=== PATIENT | female | born 1985 | race Caucasian/White ===

== ENCOUNTER 2021-03-30 17:04 | Observation (INO) | payer BC, SELFPAY ==
[2021-03-30 17:35] VITALS: BMI 45.3
[2021-03-30 18:56] VITALS: BP 111/77; PULSE 87; RESP 16; TEMP 36.9; O2SAT 97
--- NOTE | 2021-03-30 20:05 | PC.NURSE ---
ADMIT: Pt arrived by EMS at 1850. Ambulatory from stretcher to bed. VSS on 2LNC, afebrile. Mild SOB. Denies chills, nausea/vomiting, and pain at this time. Extension tubing added to nasal cannula to allow pt mobility about the room. Low fall risk, permitted independence within the room; instructed to call if needs help or has any change in symptoms (shortness of breath, dizziness, etc.). Given food, water, adaptor for phone residential support specialist. Oriented to room, call light. and daughter at home also have Covid. Pt is overweight and has had pneumonia a couple of time in her past. No other medical diagnoses or home meds. NKDA.
[2021-03-30 20:25] VITALS: BP 112/73; PULSE 88; RESP 18; TEMP 36.7; O2SAT 97
[2021-03-30 20:41] VITALS: PULSE 86; RESP 21; O2SAT 95
--- NOTE | 2021-03-30 21:41 | P.HP_ITS ---
History of Present Illness History of Present Illness Date Patient Seen: 03/30/21 Time Patient Seen: 19:45 Chief complaint: COVID 19, PNA Narrative: Amaya Mendoza is a 36 y.o. female with no particular medical history presented to [facility] with a history of fever, body aches, chills and recent and current exposure to COVID-19. She presented due to increased shortness of breath and a dry cough. She now states she has somewhat of a white phlegm a like sputum. She states her symptoms started a week ago Monday approximately 8 days ago and worsened over the LEs past couple of days. She feels that it is worse when she has to get up and move as well as when she is speaking. She denied having nausea or vomiting but stated that she had been given Zofran at the facility due to the same. Patient is unvaccinated. She denies dysuria, diarrhea or constipation. She denies any swelling of her upper lower extremities. While at [facility], they did give her a loading dose of remdesivir and dexamethasone. Patient's current vital signs are temperature of 98?, blood pressure 112/73, heart rate 86, respiratory rate 21, oxygen saturation of 95% on 1 L, she weighs 123 kg with a BMI of 45.3. Her T-max at [facility] was 102.1. Viral panel was negative except for COVID-19, her CBC was unremarkable, her chemistries drawn at [facility] included mildly elevated glucose of 109 calcium 7.9 AST 114 ALT 101 alk-phos 148 procalcitonin was normal lactate within normal limits CT angio of the chest for PE was negative for PE but noted extensive diffusely scattered patchy ill-defined ground-glass opacities in the bilateral hemithoraces. Patient History Medical History Morbid obesity with BMI of 45.0-49.9, adult Pneumonia due to COVID-19 virus Surgical History Hx LEEP (loop electrosurgical excision procedure), cervix, Family & Social History Family History Mother Alive and well Father Alive and well Social History: household members spouse,children Safety & Behavioral: Feels Safe in Current Yes Environment Been Physically Hurt or No Threatened By a Person Suicidal Ideation Description None Tobacco & Substance use: Smoking Status Former smoker, quit July 2020 alcohol intake former alcohol intake frequency 0 Substance Use Type does not use Meds Home Medications and Allergies Home Medications Medication Instructions Recorded Confirmed Type No Known Home Medications 03/30/21 03/30/21 History Allergies Allergy/AdvReac Type Severity Reaction Status Date / Time No Known Drug Allergies Allergy Verified 03/30/21 20:06 Review of Systems Review of Systems ROS: Yes All systems reviewed with the patient and are negative except as otherwise documented Exam Vital Signs (past 8 hours): - 03/30/21 18:56 03/30/21 20:25 03/30/21 20:41 Temperature 98.5 F 98.0 F Pulse Rate 87 88 86 Respiratory Rate 16 18 21 Blood Pressure 111/77 112/73 Pulse Oximetry 97 97 95 Oxygen Delivery Method Nasal Cannula Oxygen Flow Rate 1 Narrative Exam Narrative: Gen: Alert, oriented, morbidly obese 66 y.o. female, NAD HEENT: normocephalic, atraumatic, conjunctiva clear, sclera non-icteric, oral mucosa pink and moist Neck: supple, full ROM, no JVD, trachea is midline Resp: Lungs w/wheezes at the bases, becomes short of breath with speech CV: RRR, no murmur or rubs Abd: soft, non-tender, normoactive BTs Skin: no lesions or rashes, dry and intact Neuro: Alert and oriented X 4 w/no focal deficits. Speech clear and coherent. Extremities: moves all 4 extremities, is ambulatory, negative Bill?s sign Psyche: normal mood and affect. Assessment & Plan Assessment & Plan narrative: Amaya Mendoza is admitted for further management and treatment for COVID-19 pneumonia. 1. COVID-19 Pneumonia, acute, present on admission * Patient was administered loading dose of IV Remdesevir 200 mg and dexamethasone 6 mg at [facility] * Continue IV Remdesevir 100 mg and dexamethasone 6 mg the following day * [X] Supplemental O2 by nasal cannula 1-2 liters * Patient has not vaccinated but indicates she is wanting to be vaccinated. She is counseled she would be able to obtain vaccination once she tests negative, recommended mRNA vaccines * Recommended to prone as much as possible 2. Morbid obesity, * Condition places her at high risk for respiratory issues * States she has been told she snores like a bear by her , likely has sleep apnea or obesity related hypoventilation VTE Prophylaxis: Wells risk score 1.5 Enoxaparin 40 mg subQ once daily Bilateral SCDs Patient is admitted to the inpatient service due to the severity of disease, risks of further disease progression and this stay is expected to exceed 2 midnights. FEN: IV fluids: saline lock, diet: general, labs: CBC, C/BMP, liver enzymes, Mag, PT/INR Consultants None Dispo: probable discharge to home Code status: Full code as discussed with the patient who identifies as her surrogate and POA. [X] I have utilized all available immediate resources to obtain, update, or review of the patient's current medications COVID-19 COVID-19 status: Positive Result date/Date tested (Pos, Neg/Pending): 03/30/21 Scores Wells' Criteria for PE Clinical signs and symptoms of DVT: No PE is #1 Dx or equally likely: No Heart rate > 100: No Immobilization at least 3 days or surg in previous 4 weeks: Yes History of PE or DVT: No Hemoptysis: No Malignancy w/Treatment within 6 months or palliative: No Wells' PE Score total: 1.5 Quality MIPS - Admit I confirm the patient?s Advance Care Plan is present, Code status is documented, Surrogate decision maker is in patient?s record [If Yes, STOP here]: Yes MIPS - DC The patient has current or prior documentation of left ventricular ejection fraction (LVEF) less than 40%, or moderate or severely depressed left ventricular systolic function.: No
[2021-03-31] MEDS: PANTOPRAZOLE DR 20 MG TABLET 40 MG PO (01:40)
[2021-03-31 05:00] VITALS: BP 109/74; PULSE 69; RESP 18; TEMP 35.9; O2SAT 94
[2021-03-31 05:28] LABS: Add Manual Diff / Slide Review NO; Basophils Absolute Auto 0 /uL (0-100); Basophils Percent Auto 0.4 % (0-2); Eosinophils Absolute Auto 0 /uL (0-450); Hematocrit 36.5 % (36-46); Hemoglobin 12.4 g/dL (12.0-16.0); Lymphocytes Absolute Auto 1100 /uL (1100-4500); Lymphocytes Percent Auto 39.4 % (25-40); Mean Corpuscular HGB Conc 33.9 % (30-36); Mean Corpuscular Volume 85.6 fL (80-100); Monocytes Absolute Auto 300 /uL (0-900); Monocytes Percent Auto 10.8 % (3-14); Neutrophils Absolute Auto 1400 /uL (1500-7000); Neutrophils Percent Auto 49.4 % (50-75); Platelet Count 193 X10^3/uL (150-400); Red Blood Cell Count 4.27 X10^6/uL (4.0-5.2); Red Cell Distribution Width 12.7 % (11.6-14.8); White Blood Cell Count 2.9 X10^3/uL (4.5-11.0)
[2021-03-31 05:39] LABS: Alanine Aminotransferase 87 IU/L (<35); Albumin 3.7 g/dL (3.5-5.0); Albumin Globulin Ratio 1.1 (1.0-2.8); Alkaline Phosphatase 102 U/L (38-126); Aspartate Aminotransferase 98 IU/L (14-36); BUN Creatinine Ratio 18.1 (6-22); Bilirubin Total 0.5 mg/dL (0.2-1.3); Blood Urea Nitrogen 13 mg/dL (7-17); Calcium 7.8 mg/dL (8.4-10.2); Carbon Dioxide 26 mmol/L (22-32); Chloride 107 mmol/L (98-107); Estimated Glomerular Filt Rate > 60.0 mL/min (>60); Globulin 3.4 g/dL (1.7-4.1); Glucose 131 mg/dL (70-100); HEMOLYSIS < 15 (0-50); Potassium 3.7 mmol/L (3.4-5.1); Sodium 140 mmol/L (137-145); Total Protein 7.1 g/dL (6.3-8.2)
[2021-03-31 08:30] VITALS: BP 110/66; PULSE 75; RESP 19; TEMP 36.6; O2SAT 96
[2021-03-31] MEDS: ENOXAPARIN 40 MG/0.4 ML SYRINGE SUBCUT (08:30)
[2021-03-31] MEDS: DEXAMETHASONE 10 MG/ML VIAL 6 MG IV (08:31)
[2021-03-31 09:08] VITALS: O2SAT 96
--- NOTE | 2021-03-31 10:03 | PC.NURSE ---
Day shift: Pt OOB and ambulating in room for bed to window to door two times. O2 sat maintained at 94 to 96%. Pt does have intermittent cough. She is steady on her feet but ambulates slowly. Back i bed and call light in reach. VS remain WNL.
--- NOTE | 2021-03-31 11:00 | PC.NURSE ---
Day shift: Pt declined any info on [facility] at this time.
--- NOTE | 2021-03-31 12:48 | PC.NURSE ---
Day shift: Paperwork signed and all questions answered. Pt has all personal belongings. No new MD scripts. Pt remains 96% RA. Intermittent cough. Pt stated I'm real happy to be going home. Taken to car her spouse in driving in WC by this sba underwriter. Tolerated well and Pt was able to have conversation w/o any SOB. Encouraged to cough and deep breath as well as using the I.S. as directed.
--- NOTE | 2021-03-31 13:23 | CM.DANOTE ---
DCP Brief Assessment Note Patient is a 36 yo female who was admitted on 03/30/21 for COVID+ pneumonia. Pt has PRE DIM for insurance and her PCP is Denys Almonte. EMR was reviewed. Per MD, pt was transferred from [facility] for COVID+ symptoms and pt unvaccinated but interested in getting vaccinated now. Pt has a hx of smoking tobacco but quit in July 2020 this year and hx of pneumonia a couple times before. Pt was weaned to 1LO2 and then transitioned to room air and was tolerating at 96% and per MD, pt medically stable to d/c home today. Pt lives in [place] with her spouse and children and per pt the whole household tested positive with COVID. Spouse is available to transport pt home and per RN pt was given d/c instructions and recommendations and pt taken to spouse POV for d/c home this morning. Plan: Patient discharged home via spouse POV and recommendations for ongoing COVID+pneumonia recovery and no further SW needs at this time. ROBERT Escobar
--- NOTE | 2021-03-31 19:07 | PM.DS.1 ---
History of Present Illness History of Present Illness Chief complaint: COVID-19 PNA Narrative: Wilfred Santacruz: Amaya Mendoza is a 36 y.o. female with no particular medical history presented to [facility] with a history of fever, body aches, chills and recent and current exposure to COVID-19.? She presented due to increased shortness of breath and a dry cough.? She now states she has somewhat of a white phlegm a like sputum.? She states her symptoms started a week ago Monday approximately 8 days ago and worsened over the LEs past couple of days.? She feels that it is worse when she has to get up and move as well as when she is speaking.? She denied having nausea or vomiting but stated that she had been given Zofran at the facility due to the same.? Patient is unvaccinated.? She denies dysuria, diarrhea or constipation.? She denies any swelling of her upper lower extremities.? While at [facility], they did give her a loading dose of remdesivir and dexamethasone. Patient's current vital signs are temperature of 98?, blood pressure 112/73, heart rate 86, respiratory rate 21, oxygen saturation of 95% on 1 L, she weighs 123 kg with a BMI of 45.3.? [facility] Viral panel was negative except for COVID-19, her CBC was unremarkable, her chemistries drawn at [facility] included mildly elevated glucose of 109 calcium 7.9 AST 114 ALT 101 alk-phos 148 procalcitonin was normal lactate within normal limits CT angio of the chest for PE was negative for PE but noted extensive diffusely scattered patchy ill-defined ground-glass opacities in the bilateral hemithoraces. Discharge Providers Provider Date of admission: 03/30/21 17:04 Discharge Date: 03/31/21 Primary care physician: Denys Almonte MD Consults: 03/30/21 19:58 Consult to Dietitian, Adult Routine Comment: recent weight loss r/t covid infection Reason For Exam: obesity Discharge provider: Rashard Montgomery MD Summary Hospital Course Discharge Diagnosis: 1. Acute covid pneumonia 2. Morbid obesity Hospital Course: Ms. Mendoza was admitted with shortness of breath and cough. She also had fevers. She was transferred from another hospital. She improved with treatment. She did get a dose of remdesivir and decadron. She was off oxygen on day of discharge. She was able to ambulate without desaturation. She was recommended to isolate for at least another week. She was encouraged to get the vaccine when she was asymptomatic. Exam Vital Signs (past 8 hours): Oxygen Delivery Method Room Air Oxygen Flow Rate 0 Narrative Exam Narrative: GEN: no acute distress Resp: poor air movement bilaterally CV: regular rate and rhythm Abd: soft, non-tender, nondistended Objective Labs Result Diagrams: 03/31/21 05:06 03/31/21 05:06 Labs: Laboratory Results - last 24 hr 03/31/21 03/31/21 05:06 05:06 WBC 2.9 L RBC 4.27 Hgb 12.4 Hct 36.5 MCV 85.6 MCH 29.0 MCHC 33.9 RDW 12.7 Plt Count 193 Neut % (Auto) 49.4 L Lymph % (Auto) 39.4 [place] % (Auto) 10.8 Eos % (Auto) 0.0 L Baso % (Auto) 0.4 Neut # (Auto) 1400 L Lymph # (Auto) 1100 [place] # (Auto) 300 Eos # (Auto) 0 Baso # (Auto) 0 Sodium 140 Potassium 3.7 Chloride 107 Carbon Dioxide 26 BUN 13 Creatinine 0.72 Estimated GFR > 60.0 BUN/Creatinine Ratio 18.1 Glucose 131 H Calcium 7.8 L Total Bilirubin 0.5 AST 98 H ALT 87 H Alkaline Phosphatase 102 Total Protein 7.1 Albumin 3.7 Globulin 3.4 Albumin/Globulin Ratio 1.1 [facility] Medical History Morbid obesity with BMI of 45.0-49.9, adult Pneumonia due to COVID-19 virus Surgical History Hx LEEP (loop electrosurgical excision procedure), cervix, Family History Mother Alive and well Father Alive and well Social History household members: spouse and children Smoking Status: Former smoker alcohol intake: former Discharge Plan Discharge Plan Patient Disposition: Home Provider Discharge Comment: Ms. Mendoza came in to the hospital with cough, fevers. She was found to have covid pneumonia. She felt better after one day of treatment. She was able to walk around without needing oxygen. She should isolate for the next week, and possibly longer if she continues to feel ill. She is recommended to get the vaccine once her symptoms resolve. Discharge orders & Medications Prescriptions: No Action No Known Home Medications 0RF Follow up/Referrals: Denys Almonte MD [Primary Care Provider] - Diet/Activity/Treatments Diet: Regular Visit Report/Discharge Packet Instructions: DI for COVID-19 (Suspected or Confirmed ), About the COVID-19 Vaccine Discharge Data Primary Care Provider: Denys Almonte Attending Provider: Rashard Montgomery
== END 2021-03-31 12:50 | disposition home or self-care (01) ==
PROVIDERS: Admitting Provider Internal Medicine; PCP Family Medicine; Referring Provider Internal Medicine; Visit Provider Internal Medicine
DX: U07.1 COVID-19 (principal); J12.82 Pneumonia due to coronavirus disease 2019; Z68.41 Body mass index [BMI] 40.0-44.9, adult; E66.01 Morbid (severe) obesity due to excess calories; Z87.891 Personal history of nicotine dependence
CPT/HCPCS: 36415; 80053; 85025; 94760; G0378; G0379; J1100; J1650